=== PATIENT | male | born 1975 | race Caucasian/White ===

== ENCOUNTER 2025-03-01 13:26 | Outpatient (REF) | payer MEDICAID, SELFPAY ==
--- NOTE | ~2025-03-01 | XR_ITS ---
EXAMINATION: XR HAND 3 OR MORE VIEWS RIGHT HISTORY: R thumb pain and swelling for mos COMPARISON: There are no prior studies available for comparison. FINDINGS: Five views of the right hand are submitted. Osseous mineralization is normal. There is no fracture or dislocation. The joint spaces are preserved. The soft tissues are unremarkable. XR/XR hand RT min 3V IMPRESSION: Unremarkable examination of the right hand. Electronically signed by: Frederic Demarco MD 03/01/2025 01:48 PM EDT
== END 2025-03-01 13:27 | disposition home or self-care (01) ==
LOC: HO.HHCX 13:26
PROVIDERS: Visit Provider Family Medicine
DX: M79.644 Pain in right finger(s) (principal); G89.29 Other chronic pain
CPT/HCPCS: 73130

== ENCOUNTER → 2025-03-01 13:28 | Outpatient (BNV) | payer MEDICAID, SELFPAY | PROVIDERS: Visit Provider Radiology Diagnostic Radiology | DX: R22.31 Localized swelling, mass and lump, right upper limb (principal); M79.641 Pain in right hand | CPT/HCPCS: 73130 ==